=== PATIENT | male | born 1945 | race Native Hawaiian/Other Pacific Islander ===

== ENCOUNTER 2018-01-06 09:27 | Day surgery (SDC) | payer MEDICARE ==
[2018-01-02 10:26] VITALS: BMI 25.3
[2018-01-06] MEDS ORDERED: Gentamicin 160 MG in Sodium Chloride 0.9% 100 ML IVPB ONE (11:00)
[2018-01-06] MEDS ORDERED: Ciprofloxacin 400mg/200ml D5W 400 MG/200 ML BAG IVPB ONE (11:10)
[2018-01-06] MEDS ORDERED: Propofol 10 mg/ml Inj (20 ML) ONE ×3 (12:03→13:14)
[2018-01-06] MEDS ORDERED: Lidocaine 2% Jelly (Uro-Jet) ONE (12:46)
[2018-01-06] MEDS ORDERED: Labetalol 25mg/5ml Syringe ONE (13:12)
[2018-01-06] MEDS ORDERED: HYDROmorphone 0.5 mg/0.5 ml ISec IVP PRN (13:16)
--- NOTE | 2018-01-06 13:39 | PCM.SURG1 ---
Surgeon's Initial Post Op Note - Surgeon's Notes Surgeon: LANDON Pluck Trimmer: KANA Type of Anesthesia: General Mask Anesthesia Administered By: STAFF Pre-Operative Diagnosis: BPH^PSA Operative Findings: EP PARRY Post-Operative Diagnosis: EP/ELEVATED PSA Operation Performed: cYSTO/US GUIDED PROSTATE BX Specimen/Specimens Removed: 12 CORE BX Estimated Blood Loss: EBL {In ML}: 0 Blood Products Given: N/A Drains Used: No Drains Post-Op Condition: Good Date of Surgery/Procedure: 01/06/18 Time of Surgery/Procedure: 13:42
--- NOTE | 2018-01-06 15:41 | RAD ---
PROCEDURE: Intraoperative Fluoroscopy. HISTORY: ELEVATED PSA FINDINGS: Fluoroscopic assistance was provided for cystoscopy. Please refer to the operative report from MONSERRAT Arechiga. Total fluoroscopic time (continuous mode) utilized during the procedure: 9.7 seconds.
[2018-01-06 16:19] VITALS: BP 133/74; PULSE 73; RESP 18; TEMP 97.9; O2SAT 99
--- NOTE | 2018-01-07 00:55 | OP ---
PROCEDURE DATE: 01/06/2018 PREOPERATIVE DIAGNOSES: Benign prostatic hypertrophy and elevated PSA. POSTOPERATIVE DIAGNOSES: Benign prostatic hypertrophy and elevated PSA. PROCEDURE: Cystopanendoscopy and ultrasound-guided transrectal biopsy. DESCRIPTION OF PROCEDURE: The procedure is as follows. Prior to the procedure, the patient was given prophylactic antibiotics and Betadine enema, ultrasound probe was inserted into the rectum and the image of an irregular enlarged prostate was found. A 12-core biopsy was taken in symmetrical fashion. There was no rectal bleeding. The patient tolerated this procedure very well. He was then re-draped and prepped and was cystoscoped with a #21 Storz panendoscope. The pendulous and membranous urethra were normal. The prostatic urethra was irregular, showed significant trilobed hypertrophy. The bladder was entered atraumatically. There was +4 trabeculation of the bladder. There was a large amount of urine within the bladder. Based on the above findings, the patient had significant bladder outlet obstruction because of the extremely high PSA, it is very likely that the patient has prostate cancer. We will await the biopsy results before beginning therapy; however, we will send the patient to have a bone scan to determine if the problem with the left hip is related to metastatic prostate cancer. The patient was given a detailed postoperative instructions and told to follow up in our office in one week and Beach catheter will be left in place. Stefan Sharma MD
== END 2018-01-06 16:23 | disposition home or self-care (01) ==
LOC: C.SDS 09:27
PROVIDERS: ATTEND Urology
DX: N40.1 Benign prostatic hyperplasia with lower urinary tract symptoms (principal); N13.8 Other obstructive and reflux uropathy
CPT/HCPCS: 55700; 88305; A4358; J1170